=== PATIENT | male | born 1990 | race Caucasian/White ===

== ENCOUNTER 2018-03-09 10:51 | Emergency (ER) | payer MEDICAID ==
[~2018-03-09] VITALS: Ht 185.4 cm; Wt 109.1 kg
[2018-03-09 10:56] VITALS: BP 145/88; Ht 185.4 cm; Wt 109.1 kg
[2018-03-09] MEDS ORDERED: ZOFRAN4 MG PO (10:58)
[2018-03-09] MEDS ORDERED: KLONOPIN1 MG PO (10:58)
[2018-03-09] MEDS ORDERED: OMEPRAZOLE20 M1 PO (10:59)
[2018-03-09] MEDS ORDERED: [UNRECOGNIZED DRUG - REMARK] (10:59)
[2018-03-09] MEDS ORDERED: BENTYL 20 MG TA20 MG PO (12:42)
[2018-03-09] MEDS ORDERED: ZOFRAN ODT4 MG/UDTAB PO (12:42)
== END 2018-03-09 13:10 | disposition home or self-care (01) ==
LOC: D.ER 10:51 → EDBD 10:51 → D.ER 13:10
DX: R11.2 Nausea with vomiting, unspecified (principal); A08.4 Viral intestinal infection, unspecified

== ENCOUNTER 2018-03-31 08:18 | Emergency (ER) | payer MEDICAID ==
[~2018-03-31] VITALS: Ht 185.4 cm; Wt 109.1 kg
[~2018-03-31 08:18] MED LIST: BENTYL 20 MG TA20 MG PO; KLONOPIN1 MG PO; OMEPRAZOLE20 M1 PO; ZOFRAN ODT4 MG/UDTAB PO; ZOFRAN4 MG PO; [UNRECOGNIZED DRUG - REMARK]
[2018-03-31 08:21] VITALS: BP 142/97; Ht 185.4 cm; Wt 109.1 kg
[2018-03-31] MEDS ORDERED: ZOFRAN ODT4 MG/UDTAB PO (09:23)
== END 2018-03-31 09:33 | disposition home or self-care (01) ==
LOC: D.ER 08:18
DX: R10.9 Unspecified abdominal pain (principal); R11.10 Vomiting, unspecified

== ENCOUNTER 2018-08-26 08:26 | Emergency (ER) | payer MEDICAID ==
[~2018-08-26] VITALS: Ht 185.4 cm; Wt 125.0 kg
[2018-08-26 08:28] VITALS: BP 144/100; Ht 185.4 cm; Wt 125.0 kg
[2018-08-26 09:26] LABS: ALBUMIN 4.5 g/dL (3.4-5.0); ALKALINE PHOSPHATASE 83 U/L (46-116); ALT (SGPT) 39 U/L (10-68); BILIRUBIN - TOTAL 0.67 mg/dL (0.2-1.3); CALC OSMOLALITY 279 mosm/kg (275-300); CALCIUM 9.7 mg/dL (8.5-10.1); CARBON DIOXIDE 24.4 mmol/L (21.0-32.0); CHLORIDE - SERUM 103 mmol/L (98-107); CREATININE - SERUM 1.1 mg/dL (0.6-1.3); GLUCOSE 143 mg/dL (74-106); POTASSIUM - SERUM 3.7 mmol/L (3.5-5.1); PROTEIN - SERUM 8.4 g/dL (6.4-8.2); SODIUM 139 mmol/L (136-145); UREA NITROGEN 12 mg/dL (7-18); eGFR NON AFRICAN AMERICAN 84 mL/min (90-120)
[2018-08-26 09:28] LABS: AMYLASE - SERUM 41 U/L (25-115); LIPASE 106 U/L (73-393); TROPONIN-I < 0.017 ng/mL (0.000-0.060)
[2018-08-26 09:53] LABS: BASOPHILS 0.5 % (0-2); EOSINOPHILS 1.1 % (0-7); HEMATOCRIT 44.8 % (42.0-54.0); HEMOGLOBIN 16.6 g/dL (13.5-17.5); IMMATURE GRANULOCYTES 0.2 % (0-5); LYMPHOCYTES 18.6 % (15-50); MCH 30.4 pg (26.0-34.0); MCHC 37.1 g/dL (31.0-37.0); MCV 82.1 fL (80.0-100.0); MEAN PLATELET VOLUME 10.7 fL (7.4-10.4); MONOCYTES 8.7 % (2-11); NEUTROPHILS 70.9 % (40-80); PLATELET COUNT 252 10x3/uL (130-400); RBC 5.46 10x6/uL (4.20-6.10); RDW 13.1 % (11.5-14.5); WBC 8.2 10x3/uL (4.8-10.8)
== END 2018-08-26 11:01 | disposition other institution (70) ==
LOC: D.ER 08:26
PROVIDERS: Family Medicine
DX: R11.2 Nausea with vomiting, unspecified (principal)